=== PATIENT | male | born 1995 | race Caucasian/White ===

== ENCOUNTER 2017-11-12 12:20 | Emergency (ER) | payer BC ==
[~2017-11-12] VITALS: Ht 182.9 cm; Wt 61.4 kg
[2017-11-12] MEDS ORDERED: NOVOLOG 100U100 U/M1 SQ (12:24)
[2017-11-12] MEDS ORDERED: COUGH & COLD 41 TAB PO (14:31)
[2017-11-12 14:53] LABS: INFLUENZA A NEGATIVE; INFLUENZA B NEGATIVE
[2017-11-12 15:50] LABS: BASO % 0.5 % (0.0-2.0); EOS % 0.4 % (0-4.0); GRAN # 5.1 (1.4-6.5); GRAN % 62.8 % (42.2-75.2); HEMATOCRIT 39.6 % (42.0-52.0); HEMOGLOBIN 13.6 g/dl (13.5-18.0); LYMPH # 1.8 (1.2-3.4); LYMPH % 21.9 % (20.0-51.0); MEAN CELL VOLUME 86 fl (80.0-100.0); MEAN CORPUSCULAR HEMOGLOBIN 29 pg (27.0-31.0); MEAN CORPUSCULAR HGB CONC 34 g/dl (33.0-37.0); MEAN PLATELET VOLUME 11.1 fl (7.4-10.4); MONO # 1.2 (0.1-0.6); MONO % 14.2 % (1.7-9.3); PLATELET COUNT 168 K/mm3 (130-400); RED BLOOD COUNT 4.62 M/mm3 (4.20-5.60); REDCELL DISTRIBUTION WIDTH-CV 12.4 % (11.5-14.5)
[2017-11-12 15:58] LABS: ACETONE,SERUM NEGATIVE
[2017-11-12 16:06] LABS: ALANINE AMINOTRANSFERASE 27 U/L (21-72); ALBUMIN 4.4 gm/dL (3.5-5.0); ALKALINE PHOSPHATASE 76 U/L (50-136); ANION GAP 12 mmol/L (7-16); AST,SGOT 18 U/L (15-37); BILIRUBIN,TOTAL 0.5 mg/dL (0.0-1.0); BLOOD UREA NITROGEN 14 mg/dL (9-20); CALCIUM 9.7 mg/dL (8.4-10.2); CARBON DIOXIDE 25 mmol/L (22-30); CHLORIDE 100 mmol/L (98-107); CREATININE, serum 0.66 mg/dL (0.66-1.25); GLUCOSE 168 mg/dL (74-106); SODIUM 136 mmol/L (137-145); TOTAL PROTEIN 7.7 gm/dL (6.4-8.2)
[2017-11-12 16:26] VITALS: BP 100/63; PULSE 83; TEMP 98.2
== END 2017-11-12 17:09 | disposition home or self-care (01) ==
LOC: COL.ER 12:20
PROVIDERS: Nurse Practitioner
DX: J20.9 Acute bronchitis, unspecified (principal); E10.9 Type 1 diabetes mellitus without complications; F17.210 Nicotine dependence, cigarettes, uncomplicated; Z79.4 Long term (current) use of insulin
CPT/HCPCS: J1885; J7030